=== PATIENT | male | born 1995 ===

== ENCOUNTER 2018-02-12 13:35 | Emergency (ER) | payer MEDICAID ==
--- NOTE | 2018-02-12 13:45 | ED PDOC ---
HPI: General Adult Time Seen by Provider: 02/12/18 13:40 Chief Complaint (Nursing): Medical Clearance History Per: Other Additional Complaint(s): Brought by [facility] for medical and psychiatric evaluation priot yo incarceration Past Medical History Vital Signs: Last Vital Signs Temp 97 F L 02/12/18 13:36 Pulse 97 H 02/12/18 13:36 Resp 16 02/12/18 13:36 BP 144/87 02/12/18 13:36 Pulse Ox 99 02/12/18 13:36 - Medical History PMH: No Chronic Diseases - Family History Family History: States: Unknown Family Hx - Allergies Allergies/Adverse Reactions: Allergies Allergy/AdvReac Type Severity Reaction Status Date / Time No Known Allergies Allergy Verified 02/12/18 13:38 Review of Systems ROS Statement: Except As Marked, All Systems Reviewed And Found Negative Physical Exam - Reviewed Nursing Documentation Reviewed: Yes Vital Signs Reviewed: Yes - Physical Exam Appears: Positive for: Non-toxic, No Acute Distress Head Exam: Positive for: ATRAUMATIC, NORMAL INSPECTION, NORMOCEPHALIC Skin: Positive for: Normal Color, Warm, DRY Eye Exam: Positive for: EOMI, Normal appearance, PERRL ENT: Positive for: Normal ENT Inspection Neck: Positive for: Normal, Painless ROM Cardiovascular/Chest: Positive for: Regular Rate, Rhythm Respiratory: Positive for: CNT, Normal Breath Sounds Gastrointestinal/Abdominal: Positive for: Normal Exam, Soft Back: Positive for: Normal Inspection Extremity: Positive for: Normal ROM Neurologic/Psych: Positive for: Alert, Oriented - ECG O2 Sat by Pulse Oximetry: 99 Disposition - Clinical Impression Clinical Impression: Normal physical exam - Patient ED Disposition Is Patient to be Admitted: No Counseled Patient/Family Regarding: Diagnosis, Need For Followup - Disposition Disposition: Discharged/Transfer to Law Enforcement Disposition Time: 13:44 Condition: FAIR Additional Instructions: Medically and psychiatrically stable for incarceration Instructions: General (DC)
[2018-02-12 15:20] VITALS: BP 131/76; PULSE 84; RESP 18; TEMP 98.5; O2SAT 100
== END 2018-02-12 15:15 ==
LOC: H.ER 13:35
DX: Z00.00 Encounter for general adult medical examination without abnormal findings (principal)